=== PATIENT | female | born 1990 | race Caucasian/White ===

== ENCOUNTER 2019-05-14 23:33 | Emergency (ER) | payer OTHER ==
[~2019-05-14] VITALS: Ht 170.2 cm; Wt 88.9 kg
[~2019-05-14 23:33] MED LIST: COL100 PO; MOT800 PO; VICODIN ES1 TAB PO
[2019-05-14 23:42] VITALS: Ht 170.2 cm; Wt 88.9 kg
[2019-05-15 01:37] VITALS: BP 135/86
== END 2019-05-15 01:24 | disposition home or self-care (01) ==
LOC: ED 23:33
DX: S61.452A Open bite of left hand, initial encounter (principal); I10 Essential (primary) hypertension; W54.0XXA Bitten by dog, initial encounter; Y93.89 Activity, other specified; Y92.89 Other specified places as the place of occurrence of the external cause; Y99.8 Other external cause status